=== PATIENT | male | born 1980 | race Caucasian/White ===

== ENCOUNTER 2019-01-14 04:29 | Emergency (ER) | payer MEDICAID ==
[2019-01-14 04:43] VITALS: BP 132/89; PULSE 88; RESP 17; TEMP 98.9; O2SAT 98
--- NOTE | 2019-01-14 05:37 | ED PDOC ---
HPI: CCC, URI, Sore Throat Time Seen by Provider: 01/14/19 04:45 Chief Complaint (Nursing): Weakness/Neurological Deficit Chief Complaint (Provider): Sore Throat and Cough History Per: Patient History/Exam Limitations: no limitations Onset/Duration Of Symptoms: Days (x3) Associated Symptoms: Sore Throat, Cough. denies: Fever Additional Complaint(s): 38 years old male presents to ER for evaluation of sore throat with mild cough for the past 3 days. Patient states he has not used any medications to help relieve symptoms. Patient is HIV+ but has not been on medications for 3 months because he "lost his insurance". He denies fever, chills, cough, shortness of breath and rash. PMD: None provided Past Medical History Reviewed: Historical Data, Nursing Documentation, Vital Signs Vital Signs: Last Vital Signs Temp 98.9 F 01/14/19 04:42 Pulse 88 01/14/19 04:42 Resp 17 01/14/19 04:42 BP 132/89 01/14/19 04:42 Pulse Ox 98 01/14/19 04:42 - Medical History PMH: No Chronic Diseases Denies: Diabetes, Hepatitis, HIV, HTN, Chronic Kidney Disease, Seizures, Sexually Transmitted Disease - Surgical History Surgical History: No Surg Hx - Family History Family History: States: Unknown Family Hx - Immunization History Hx Tetanus Toxoid Vaccination: No Hx Influenza Vaccination: No Hx Pneumococcal Vaccination: No - Home Medications Home Medications: Ambulatory Orders Medication Instructions Recorded Acetaminophen [Tylenol 325mg tab] 325 mg PO Q6 #14 tab 06/11/16 Naproxen [Naprosyn] 500 mg PO Q12H #20 tab 06/11/16 Sulfamethoxazole/Trimethoprim 1 tab PO BID #14 tab 06/11/16 [Bactrim DS 800 mg-160 mg] Amoxicillin [Amoxil 500 mg Cap] 500 mg PO BID #19 cap 01/14/19 - Allergies Allergies/Adverse Reactions: Allergies Allergy/AdvReac Type Severity Reaction Status Date / Time No Known Allergies Allergy Verified 01/14/19 04:43 Review of Systems ROS Statement: Except As Marked, All Systems Reviewed And Found Negative Constitutional: Negative for: Fever ENT: Positive for: Throat Pain Cardiovascular: Negative for: Chest Pain Respiratory: Positive for: Cough (mild). Negative for: Shortness of Breath Skin: Negative for: Rash Physical Exam - Reviewed Nursing Documentation Reviewed: Yes Vital Signs Reviewed: Yes - Physical Exam Appears: Positive for: Well, No Acute Distress Head Exam: Positive for: ATRAUMATIC, NORMOCEPHALIC Skin: Positive for: Normal Color, Warm, Dry Eye Exam: Positive for: Normal appearance, EOMI, PERRL ENT: Positive for: TM Is/Are (Non erythematous, non bulging), Pharyngeal Erythema. Negative for: Tonsillar Exudate, Tonsillar Swelling Cardiovascular/Chest: Positive for: Regular Rate, Rhythm. Negative for: Murmur Respiratory: Positive for: Normal Breath Sounds. Negative for: Respiratory Distress Gastrointestinal/Abdominal: Positive for: Normal Exam, Soft. Negative for: Tenderness Neurological/Psych: Positive for: Awake, Alert, Oriented (x3) - ECG O2 Sat by Pulse Oximetry: 98 (RA) Pulse Ox Interpretation: Normal Medical Decision Making Medical Decision Making: Time: 516 --Amoxicillin --Tylenol --Throat culture Scribe Attestation: Documented by Garima Polk, acting as a scribe for DONOVAN Carvajal. Provider Scribe Attestation: All medical record entries made by the Scribe were at my direction and personally dictated by me. I have reviewed the chart and agree that the record accurately reflects my personal performance of the history, physical exam, medical decision making, and the department course for this patient. I have also personally directed, reviewed, and agree with the discharge instructions and disposition. Disposition - Clinical Impression Clinical Impression: Pharyngitis - Patient ED Disposition Is Patient to be Admitted: No - Disposition Referrals: [facility] [Outside] [facility] [Outside] Disposition: Routine/Home Disposition Time: 05:20 Condition: STABLE Additional Instructions: FOLLOW UP WITH [facility] FOR FURTHER EVALUATION RETURN TO ED IMMEDIATELY IF SYMPTOMS WORSEN RADHA POWELL, thank you for letting us take care of you today. Your provider was Shadia Medina MD and you were treated for HE'S HOMELESS/WEAK. The emergency medical care you received today was directed at your acute symptoms. If you were prescribed any medication, please fill it and take as directed. It may take several days for your symptoms to resolve. Return to the Emergency Department if your symptoms worsen, do not improve, or if you have any other problems. Please contact your doctor or call one of the physicians/clinics you have been referred to that are listed on the Patient Visit Information form that is included in your discharge packet. Bring any paperwork you were given at discharge with you along with any medications you are taking to your follow up visit. Our treatment cannot replace ongoing medical care by a primary care provider outside of the emergency department. Thank you for allowing the [facility] team to be part of your care today. If you had an X-Ray or CT scan: A Radiologist will review the ED reading if any change in treatment is needed we will contact you. If you had a blood, urine, or wound culture: It will take several days for the results, if any change in treatment is needed we will contact you. If you had an STI test: It will take 48 hours for the results. Please call after 1 week if you have not heard back. Prescriptions: Amoxicillin [Amoxil 500 mg Cap] 500 mg PO BID #19 cap Instructions: Sore Throat, Adult (DC) Print Language: GAMBIAN
== END 2019-01-14 05:58 | disposition home or self-care (01) ==
LOC: H.ER 04:29
DX: J02.9 Acute pharyngitis, unspecified (principal)